=== PATIENT | male | born 1960 | race Caucasian/White ===

== ENCOUNTER 2016-10-13 11:28 | Observation (INO) | payer BC ==
[~2016-10-13] VITALS: Ht 175.3 cm; Wt 114.8 kg
[2016-10-13] VITALS (9 sets, daily range): BP systolic 119–141; BP diastolic 71–97; PULSE 85–104; TEMP 97.8–99
[~2016-10-13 11:28] MED LIST: MOBIC15 MG PO; MONODOX100 PO; ULTRAM 50MG TAB50 MG PO
[2016-10-13] MEDS ORDERED: GLUCOPHAGE500 MG/TAB PO (13:13)
[2016-10-13] MEDS ORDERED: FLOMAX 0.40.4 MG/CAP PO (13:13)
[2016-10-13] MEDS ORDERED: ZESTRIL 5MG5 MG PO (13:13)
[2016-10-13] MEDS ORDERED: CELEXA 20MG20 MG/TAB PO (13:14)
[2016-10-14 02:40] VITALS: BP 128/82; PULSE 91; TEMP 98.2
[2016-10-14 06:33] VITALS: BP 134/82; PULSE 85; TEMP 97.7
[2016-10-14 08:18] LABS: HEMATOCRIT 43.4 % (42.0-52.0); MEAN CELL VOLUME 90 fl (80.0-100.0); MEAN CORPUSCULAR HEMOGLOBIN 31 pg (27.0-31.0); MEAN CORPUSCULAR HGB CONC 35 g/dl (33.0-37.0); MEAN PLATELET VOLUME 9.6 fl (7.4-10.4); PLATELET COUNT 261 K/mm3 (130-400); RED BLOOD COUNT 4.83 M/mm3 (4.20-5.60); REDCELL DISTRIBUTION WIDTH-CV 12.5 % (11.5-14.5); WHITE BLOOD COUNT 15.9 K/mm3 (4.8-10.8)
[2016-10-14 09:40] VITALS: BP 123/77; PULSE 102; TEMP 97.9
[2016-10-14 13:59] VITALS: BP 130/71; PULSE 60; TEMP 97.5
[2016-10-14 17:27] VITALS: BP 137/74; PULSE 81; TEMP 97.7
[2016-10-14 22:22] VITALS: BP 119/76; PULSE 89; TEMP 98.1
[2016-10-15 06:03] VITALS: BP 134/77; PULSE 109; TEMP 98.5
== END 2016-10-15 09:09 | disposition home or self-care (01) ==
LOC: SDCO 11:28 → SURG 17:56 → SDCO 10-14 09:30 → SURG 10-14 09:31
PROVIDERS: Urology
DX: C67.9 Malignant neoplasm of bladder, unspecified (principal); N40.0 Benign prostatic hyperplasia without lower urinary tract symptoms; R31.9 Hematuria, unspecified
CPT/HCPCS: OP; G0378; J0360; J0690; J1100; J1815; J2405; J2704; J3010; J7120